=== PATIENT | female | born 1960 | race Caucasian/White ===

== ENCOUNTER 2016-03-28 17:46 | Emergency (ER) | payer BC ==
[~2016-03-28] VITALS: Ht 167.6 cm; Wt 61.4 kg
[~2016-03-28 17:46] MED LIST: ADVAIR 250/501 DISK IH; ATROVENT H200 INHALA IH; CLONAZEPAM0.5 MG PO; GAVISCON LIQUI355 ML PO; LISINOPRIL20 MG PO; MILK OF MAGNESI10 ML PO; PRILOSEC40 MG PO; PROTONIX40 MG PO; RANITIDINE HCL150 MG PO; TYLENOL WITH C1 EACH PO; VENLAFAXINE HC150 M1 PO
[2016-03-28 19:01] LABS: HEMATOCRIT 30.1 % (36.0-46.0); MCH 25.2 PG (29.0-34.0); MCHC 29.9 G/DL (30.0-36.0); MCV 84.3 FL (83-99); MEAN PLAT.VOLUME 9.4 uM^3 (9.5-12.4); PLATELET COUNT 740 K/uL (156-360); RBC DIS.WIDTH-CV 17.6 % (11.8-14.6); RBC DIS.WIDTH-SD 53.1 % (39-53); RED BLOOD COUNT 3.57 M/uL (3.80-5.20); WHITE BLOOD COUNT 7.4 K/uL (4.1-10.2)
[2016-03-28 19:13] LABS: CHLORIDE 106 mEq/L (99-109); SODIUM 136 mEq/L (136-147)
[2016-03-28 19:15] LABS: GLUCOSE 101 mg/dL (70-99)
[2016-03-28 19:17] LABS: ANION GAP 11 MEQ/L (2-14); TOTAL BILIRUBIN 0.4 mg/dL (0.0-1.0)
[2016-03-28 19:19] LABS: ALKALINE PHOSPHATASE 96 IU/L (3-129); GFR ESTIMATE (CALCULATED) > 59 mL/min/
[2016-03-28 19:20] LABS: UREA NITROGEN (BUN) 13 mg/dL (9-23)
[2016-03-28 19:22] LABS: LIPASE 34 U/L (1.0-51.0)
[2016-03-28 19:29] LABS: QUANTITATIVE HCG < 4.0 MIU/ML
[2016-03-28 20:10] LABS: ADD MIUA? YES; BILIRUBIN NEGATIVE; BLOOD NEGATIVE; COLOR YELLOW ((YELLOW)); GLUCOSE (STRIP) NEGATIVE; KETONES NEGATIVE; LEUKOCYTES SMALL; NITRITE NEGATIVE; PH, URINE 5.5 (5-8); PROTEIN (STRIP) NEGATIVE; SPECIFIC GRAVITY 1.029 (1.000-1.030); UROBILINOGEN 0.2 MG/DL (0.2-1.0)
[2016-03-28 20:13] LABS: TROP-I INTERPRETATION NEGATIVE; TROPONIN-I < 0.01 ng/mL (0.0-0.30)
[2016-03-28 20:22] LABS: RED BLOOD CELLS 0-5 /HPF (0-5); URBC NUMBER 20.1
[2016-03-28 20:23] LABS: BACTERIA NONE SEEN; CASTS NONE SEEN /LPF; CRYSTALS NONE SEEN; EPITHELIAL CELLS NONE SEEN; MUCUS NONE SEEN; UBAC NUMBER 10.3; UCUL ADDED? NO; UEPI NUMBER 3.6; UWBC NUMBER 24.7; WHITE BLOOD CELLS 0-5 /HPF (0-5)
[2016-03-28] MEDS ORDERED: CARAFATE1 GM PO (21:12)
[2016-03-28 21:19] VITALS: BP 133/74
== END 2016-03-28 21:20 | disposition home or self-care (01) ==
LOC: EME 17:46 → RME 17:46
PROVIDERS: Physician Assistant
DX: K27.9 Peptic ulcer, site unspecified, unspecified as acute or chronic, without hemorrhage or perforation (principal); K29.70 Gastritis, unspecified, without bleeding; K21.9 Gastro-esophageal reflux disease without esophagitis; I10 Essential (primary) hypertension; F17.200 Nicotine dependence, unspecified, uncomplicated; Z87.442 Personal history of urinary calculi; Z88.6 Allergy status to analgesic agent
CPT/HCPCS: 74022; 80053; 81003; 83690; 84484; 84702; 85027; 99281; 99284

== ENCOUNTER 2016-06-15 16:41 | Emergency (ER) | payer BC ==
[~2016-06-15] VITALS: Ht 167.6 cm; Wt 59.4 kg
[~2016-06-15 16:41] MED LIST changes: +CARAFATE1 GM PO
[2016-06-15 17:10] VITALS: BP 128/85
== END 2016-06-15 17:29 | disposition left against medical advice (07) ==
LOC: EME 16:41
DX: R10.9 Unspecified abdominal pain (principal); R11.2 Nausea with vomiting, unspecified; R51 Headache; Z53.21 Procedure and treatment not carried out due to patient leaving prior to being seen by health care provider
CPT/HCPCS: 80053; 81003; 83690; 84702; 85027

== ENCOUNTER 2016-08-24 18:41 | Emergency (ER) | payer BC ==
[~2016-08-24] VITALS: Ht 167.6 cm; Wt 62.5 kg
[2016-08-24 19:13] LABS: ADD MIUA? YES; BILIRUBIN NEGATIVE; BLOOD NEGATIVE; COLOR YELLOW ((YELLOW)); GLUCOSE (STRIP) NEGATIVE; KETONES NEGATIVE; LEUKOCYTES TRACE; NITRITE NEGATIVE; PROTEIN (STRIP) NEGATIVE; SPECIFIC GRAVITY 1.024 (1.000-1.030); UROBILINOGEN 0.2 MG/DL (0.2-1.0)
[2016-08-24 19:18] LABS: BACTERIA RARE /HPF; EPITHELIAL CELLS NONE SEEN /HPF; MUCUS NONE SEEN /LPF; RED BLOOD CELLS 0-5 /HPF (0-5); UCUL ADDED? NO; WHITE BLOOD CELLS 0-5 /HPF (0-5)
[2016-08-24 19:56] LABS: HEMATOCRIT 28.3 % (36.0-46.0); MCH 23.9 PG (29.0-34.0); MCHC 29.3 G/DL (30.0-36.0); MCV 81.3 FL (83-99); MEAN PLAT.VOLUME 8.8 uM^3 (9.5-12.4); PLATELET COUNT 483 K/uL (156-360); RBC DIS.WIDTH-CV 17.5 % (11.8-14.6); RBC DIS.WIDTH-SD 51.8 % (39-53); RED BLOOD COUNT 3.48 M/uL (3.80-5.20); WHITE BLOOD COUNT 8.1 K/uL (4.1-10.2)
[2016-08-24 20:01] LABS: CHLORIDE 104 mEq/L (99-109); POTASSIUM 3.7 mEq/L (3.7-5.4); SODIUM 137 mEq/L (136-147)
[2016-08-24 20:03] LABS: GLUCOSE 95 mg/dL (70-99)
[2016-08-24 20:05] LABS: ANION GAP 8 MEQ/L (2-14); TOTAL BILIRUBIN 0.2 mg/dL (0.0-1.0)
[2016-08-24 20:07] LABS: ALKALINE PHOSPHATASE 79 IU/L (3-129); GFR ESTIMATE (CALCULATED) > 59 mL/min/
[2016-08-24 20:08] LABS: UREA NITROGEN (BUN) 16 mg/dL (9-23)
[2016-08-24 20:11] LABS: LIPASE 47 U/L (1.0-51.0)
[2016-08-24 20:16] LABS: QUANTITATIVE HCG < 4.0 MIU/ML
[2016-08-24] MEDS ORDERED: REGLAN10 MG PO (21:10)
[2016-08-24 21:21] VITALS: BP 145/83
== END 2016-08-24 21:24 | disposition home or self-care (01) ==
LOC: EME 18:41
DX: R10.13 Epigastric pain (principal); I10 Essential (primary) hypertension; K21.9 Gastro-esophageal reflux disease without esophagitis; Z87.442 Personal history of urinary calculi; F17.200 Nicotine dependence, unspecified, uncomplicated
CPT/HCPCS: 80053; 81003; 83690; 84702; 85027; 93005; 99281; 99285

== ENCOUNTER 2016-10-06 19:03 | Emergency (ER) | payer BC ==
[~2016-10-06] VITALS: Ht 170.2 cm; Wt 59.1 kg
[~2016-10-06 19:03] MED LIST changes: +REGLAN10 MG PO
[2016-10-06 19:37] LABS: HEMATOCRIT 31.5 % (36.0-46.0); MCH 23.9 PG (29.0-34.0); MCHC 29.5 G/DL (30.0-36.0); MEAN PLAT.VOLUME 9.2 uM^3 (9.5-12.4); PLATELET COUNT 508 K/uL (156-360); RBC DIS.WIDTH-CV 18.5 % (11.8-14.6); RBC DIS.WIDTH-SD 54.3 % (39-53); RED BLOOD COUNT 3.89 M/uL (3.80-5.20); WHITE BLOOD COUNT 6.6 K/uL (4.1-10.2)
[2016-10-06 19:54] LABS: CHLORIDE 107 mEq/L (99-109)
[2016-10-06 19:55] LABS: POTASSIUM 4.3 mEq/L (3.7-5.4); SODIUM 138 mEq/L (136-147)
[2016-10-06 19:57] LABS: GLUCOSE 89 mg/dL (70-99)
[2016-10-06 19:58] LABS: ANION GAP 12 MEQ/L (2-14)
[2016-10-06 19:59] LABS: TOTAL BILIRUBIN 0.3 mg/dL (0.0-1.0)
[2016-10-06 20:00] LABS: ALKALINE PHOSPHATASE 114 IU/L (3-129); GFR ESTIMATE (CALCULATED) > 59 mL/min/
[2016-10-06 20:02] LABS: UREA NITROGEN (BUN) 11 mg/dL (9-23)
[2016-10-06 20:24] LABS: QUANTITATIVE HCG < 4.0 MIU/ML
[2016-10-06 21:47] LABS: ADD MIUA? YES; BILIRUBIN NEGATIVE; BLOOD NEGATIVE; COLOR YELLOW ((YELLOW)); GLUCOSE (STRIP) NEGATIVE; KETONES NEGATIVE; LEUKOCYTES SMALL; NITRITE NEGATIVE; PROTEIN (STRIP) 30; UROBILINOGEN 0.2 MG/DL (0.2-1.0)
[2016-10-06 21:51] LABS: BACTERIA NONE SEEN /HPF; EPITHELIAL CELLS RARE /HPF; MUCUS TRACE /LPF; RED BLOOD CELLS 0-5 /HPF (0-5); UCUL ADDED? NO; WHITE BLOOD CELLS 0-5 /HPF (0-5)
[2016-10-06 22:26] LABS: LIPASE 38 U/L (1.0-51.0)
[2016-10-07] MEDS ORDERED: ATIVAN1 MG PO (00:49)
[2016-10-07] MEDS ORDERED: FIORICET 50-301 EACH PO (00:49)
[2016-10-07 01:41] VITALS: BP 185/109
== END 2016-10-07 01:42 | disposition home or self-care (01) ==
LOC: EME 19:03
DX: G89.29 Other chronic pain (principal); R10.11 Right upper quadrant pain; K21.9 Gastro-esophageal reflux disease without esophagitis; I10 Essential (primary) hypertension; F32.9 Major depressive disorder, single episode, unspecified; F17.200 Nicotine dependence, unspecified, uncomplicated; G43.909 Migraine, unspecified, not intractable, without status migrainosus
CPT/HCPCS: 74022; 76705; 80053; 81003; 83690; 84702; 85027; 99281; 99284; J2765; J3010; J7030

== ENCOUNTER 2017-08-31 16:41 | Emergency (ER) | payer OTHER ==
[~2017-08-31] VITALS: Ht 167.6 cm; Wt 58.6 kg
[~2017-08-31 16:41] MED LIST changes: +ATIVAN1 MG PO; +FIORICET 50-301 EACH PO
[2017-08-31] MEDS ORDERED: ROBAXIN750 MG PO (18:32)
[2017-08-31] MEDS ORDERED: MOBIC7.5 MG PO (18:32)
[2017-08-31 19:11] VITALS: BP 111/71
== END 2017-08-31 19:11 | disposition home or self-care (01) ==
LOC: EME 16:41
DX: S16.1XXA Strain of muscle, fascia and tendon at neck level, initial encounter (principal); S39.012A Strain of muscle, fascia and tendon of lower back, initial encounter; W11.XXXA Fall on and from ladder, initial encounter; Y93.89 Activity, other specified; I10 Essential (primary) hypertension; K21.9 Gastro-esophageal reflux disease without esophagitis; K22.70 Barrett's esophagus without dysplasia; F41.9 Anxiety disorder, unspecified; F32.9 Major depressive disorder, single episode, unspecified; F17.200 Nicotine dependence, unspecified, uncomplicated; Z87.442 Personal history of urinary calculi; Z88.6 Allergy status to analgesic agent; Z88.5 Allergy status to narcotic agent
CPT/HCPCS: 72040; 72100; 99281; 99283